=== PATIENT | male | born 1955 | race Caucasian/White ===

== ENCOUNTER → 2016-07-17 | Outpatient (CLI) | payer MEDICAID | LOC: RAD 08:38 | PROVIDERS: ATTEND Specialist | DX: C15.5 Malignant neoplasm of lower third of esophagus (principal) | CPT/HCPCS: 70490; 71250 ==

== ENCOUNTER → 2017-07-14 | Outpatient (CLI) | payer MEDICAID, MEDICARE ==
--- NOTE | 2017-07-14 10:18 | RADIOLOGY REPORT (SQ) ---
EXAM DESCRIPTION: CT CHEST WITHOUT COMPLETED DATE/TIME: 07/14/2017 8:55 am REASON FOR STUDY: OTHER DISORDERS OF LUNG (J98.4), PULM NODULE (R91.1) J98.4 OTHER DISORDERS OF ADRIANNA G R91.1 SOLITARY PULMONARY NODULE COMPARISON: 2017, 2016. TECHNIQUE: CT scan performed of the chest without intravenous contrast. Images reviewed with lung, soft tissue and bone windows. Reconstructed coronal and sagittal MPR images reviewed. All images st ored on PACS. All CT scanners at this facility use dose modulation, iterative reconstruction, and/or weight based d osing when appropriate to reduce radiation dose to as low as reasonably achievable (ALARA). [facility]: Dose Right [facility]: CareDose [facility]: Dose Right [facility]: Teradose 4D [facility]: [employer] RADIATION DOSE: CT Rad equipment meets quality standard of care and radiation dose reduction techniq ues were employed. CTDIvol: 10.8 mGy. DLP: 441 mGy-cm. mGy. LIMITATIONS: No technical limitations. FINDINGS: LUNGS AND PLEURA: Small focus of nodular soft tissue in the right upper lobe with regional distortion, scar. This measures up to 1.9 cm maximally, stable compared to 2017. No recurrent cavi tary mass. No developing lung lesions. Previously noted extensive right lower lobe consolidation hoffmann s resolved since last year. HILAR AND MEDIASTINAL STRUCTURES: Apparent previous gastric pull-through, postoperative changes relat ed to the esophagus. Small chronic anterior epicardial nodes. HEART AND VASCULAR STRUCTURES: No aneurysm. No pericardial effusion. UPPER ABDOMEN: No significant findings. Limited exam. THYROID AND OTHER SOFT TISSUES: No masses. No adenopathy. BONES: Osteopenic and kyphotic. No developing fracture or discrete bone lesion. HARDWARE: None in the chest. OTHER: No other significant findings. IMPRESSION: 1. Stable small focus of scar in the right upper lobe without recurring cavitary lesion . Resolved consolidation in the right lower lobe. Stable small mediastinal nodes. TECHNICAL DOCUMENTATION: JOB ID: [id number] Quality ID # [id number]: Final reports with documentation of one or more dose reduction techniques (e.g., Au tomated exposure control, adjustment of the mA and/or kV according to patient size, use of iterative reconstruction technique) 2010 [employer]- All Rights Reserved Reading location - IP/workstation name: [email or web address]
== END ==
LOC: RAD 08:40
PROVIDERS: ATTEND Internal Medicine Pulmonary Disease
DX: J98.4 Other disorders of lung (principal); R91.1 Solitary pulmonary nodule
CPT/HCPCS: 71250

== ENCOUNTER 2017-12-19 10:28 | Inpatient (IN) | payer MEDICARE, MEDICAID ==
[2017-12-19] MEDS ORDERED: IPRATROPIUM/ALBUTEROL 0.5-2.5 MG/3 ML AMPUL NEB ONE (11:03)
--- NOTE | 2017-12-19 11:05 | ER Document Report ---
ED Medical Screen (RME) - General Chief Complaint: Productive Cough Stated Complaint: COUGH Time Seen by Provider: 12/19/17 10:38 Mode of Arrival: Ambulatory Information source: Patient, Relative, [facility] Records Notes: 61-year-old male with COPD, hypertension, hyperlipidemia, history of esophageal cancer in remission presents with complaint of cough, chest pain, shortness of breath and weakness that have been ongoing for 3 weeks. Patient describes the cough as productive, constant. Patient's chest pain is described as a burning intermittent pain that is worse with laying flat. Patient continues to use tobacco. 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 No recent hospital admissions. I have greeted and performed a rapid initial assessment of this patient. A comprehensive ED assessment and evaluation of the patient, analysis of test results and completion of medical decision making process we will be contacted by additional ED providers. PHYSICAL EXAMINATION: GENERAL: Ill-appearing, well-nourished and in no acute distress. HEAD: Atraumatic, normocephalic. EYES: Pupils equal round extraocular movements intact, conjunctiva are normal. ENT: Nares patent NECK: Normal range of motion LUNGS: No respiratory distress. Musculoskeletal: Normal range of motion NEUROLOGICAL: Normal speech, normal gait. PSYCH: Normal mood, normal affect. SKIN: Warm, Dry, normal turgor, no rashes or lesions noted. TRAVEL OUTSIDE OF THE [place] IN LAST 30 DAYS: No - HPI Onset: Other Onset/Duration: Persistent, Worse Quality of pain: Burning Severity: Mild Associated Symptoms: Body/muscle aches, Chest pain, Cough (productive), Nausea, Shortness of breath, Weakness Exacerbated by: Movement, Coughing, Deep breathing Relieved by: Denies Similar symptoms previously: Yes Recently seen / treated by doctor: Yes - Related Data Smoking: Cigarettes Frequency of alcohol use: None Drug Abuse: None Allergies/Adverse Reactions: Penicillins Allergy (Verified 12/19/17 11:04) Sulfa (Sulfonamide Antibiotics) Allergy (Verified 12/19/17 11:04) Past Medical History - Social History Chew tobacco use (# tins/day): No Frequency of alcohol use: None Drug Abuse: None - Past Medical History Cardiac Medical History: Reports: Hx Hypertension Pulmonary Medical History: Reports: Hx COPD, Hx Pneumonia, Hx Intubation Renal/ Medical History: Denies: Hx Peritoneal Dialysis Psychiatric Medical History: Reports: Hx Depression Past Surgical History: Reports: Hx Abdominal Surgery - hernia, spleen, Hx Appendectomy, Hx Cholecystectomy, Hx Orthopedic Surgery - R knee replaced. L knee repair. Physical Exam - Vital signs Vitals: Temp Pulse Resp BP Pulse Ox 97.9 F 109 H 22 H 116/79 99 12/19/17 10:36 12/19/17 10:36 12/19/17 10:36 12/19/17 10:36 12/19/17 10:36 Course - Vital Signs Vital signs: Temp Pulse Resp BP Pulse Ox 97.9 F 109 H 22 H 116/79 99 12/19/17 10:36 12/19/17 10:36 12/19/17 10:36 12/19/17 10:36 12/19/17 10:36 Doctor's Discharge - Discharge Referrals: MARGUERITE CHAVEZ MD [Primary Care Provider] - Follow up as needed
[2017-12-19] MEDS ORDERED: NORMAL SALINE 500 ML IV ONE (11:06)
--- NOTE | 2017-12-19 11:43 | RADIOLOGY REPORT (SQ) ---
EXAM DESCRIPTION: CHEST 2 VIEWS COMPLETED DATE/TIME: 12/19/2017 11:17 am REASON FOR STUDY: cough COMPARISON: None. NUMBER OF VIEWS: Two view TECHNIQUE: Frontal and lateral radiographic images of the chest acquired. LIMITATIONS: None. FINDINGS: LUNGS AND PLEURA: Enlarging cavitary lesion right upper lobe measuring roughly 10 cm in ma ximum diameter. Subsegmental airspace disease in the right middle lobe. MEDIASTINUM AND HILAR STRUCTURES: Stable heart size and mediastinal structures. HEART AND VASCULAR STRUCTURES: Stable appearance. BONES: No acute findings. HARDWARE: None in the chest. OTHER: No other significant finding. IMPRESSION: Enlarging cavitary lesion right upper lobe. Right middle lobe pneumonia. TECHNICAL DOCUMENTATION: JOB ID: [id number] [employer]- All Rights Reserved Reading location - IP/workstation name: [email or web address]
[2017-12-19 11:51] LABS: HEMATOCRIT 28.3 % (37.9-51.0); HEMOGLOBIN 9.4 g/dL (13.5-17.0); MEAN CORPUSCULAR HEMOGLOBIN 29.1 pg (27.0-33.4); MEAN CORPUSCULAR HGB CONC 33.2 g/dL (32.0-36.0); MEAN CORPUSCULAR VOLUME 88 fl (80-97); PLATELET COUNT 716 10^3/uL (150-450); RED BLOOD COUNT 3.23 10^6/uL (4.35-5.55); RED CELL DISTRIBUTION WIDTH 14.2 % (11.5-14.0)
[2017-12-19] MEDS ORDERED: CEFTRIAXONE 1 GM/D5W RTU 1 GM/50 ML RTUPB IV ONE (12:05)
[2017-12-19 12:06] LABS: ALANINE AMINOTRANSFERASE 21 U/L (21-72); ALBUMIN 2.8 g/dL (3.5-5.0); ALKALINE PHOSPHATASE 217 U/L (38-126); ANION GAP 13 (5-19); ASPARTATE AMINO TRANSFERASE 16 U/L (17-59); BILIRUBIN,DIRECT 0.4 mg/dL (0.0-0.4); BILIRUBIN,TOTAL 0.6 mg/dL (0.2-1.3); BLOOD UREA NITROGEN 18 mg/dL (7-20); CALCIUM 8.5 mg/dL (8.4-10.2); CARBON DIOXIDE 25 mmol/L (22-30); CHLORIDE 102 mmol/L (98-107); CREATINE KINASE 20 U/L (55-170); GLUCOSE 83 mg/dL (75-110); LIPASE 16.5 U/L (23-300); POTASSIUM 3.6 mmol/L (3.6-5.0); TOTAL PROTEIN 6.5 g/dL (6.3-8.2)
[2017-12-19 12:09] LABS: ABSOLUTE LYMPHOCYTES# (MANUAL) 2.6 10^3/uL (0.5-4.7); ABSOLUTE MONOCYTES # (MANUAL) 0.3 10^3/uL (0.1-1.4); BASOPHILS % (MANUAL) 0 % (0-2); EOSINOPHILS % (MANUAL) 0 % (0-6); LYMPHOCYTES % (MANUAL) 8 % (13-45); MONOCYTES % (MANUAL) 1 % (3-13); SEGMENTED NEUTROPHILS % (MAN) 91 % (42-78); TOTAL CELLS COUNTED 100
[2017-12-19 12:10] LABS: PLATELET COMMENT INCREASED; PLATELET GIANT PRESENT; PLATELET LARGE PRESENT; RBC MORPHOLOGY COMMENT NORMO-CYTIC/CHROMIC; TOXIC GRANULATION SLIGHT
[2017-12-19 12:12] LABS: WHITE BLOOD COUNT 31.9 10^3/uL (4.0-10.5)
[2017-12-19] MEDS ORDERED: CEFTRIAXONE INJ 1000 MG VIAL IV ONE (12:14)
[2017-12-19 12:18] LABS: CREATINE KINASE MB 0.46 ng/mL (<4.55)
--- NOTE | 2017-12-19 12:18 | ER Document Report ---
ED General - General Chief Complaint: Productive Cough Stated Complaint: COUGH Time Seen by Provider: 12/19/17 10:38 Mode of Arrival: Ambulatory Notes: Patient says that he is having a breathing problem associated with coughing and wheezing over the past 3 weeks. He has had 2 courses of azithromycin and steroids and just finished a second course and has not shown any improvement. Is coughing up yellow and opaque phlegm. Says he feels weak and tired and has no energy and says he is not eating hardly any food. Denies any nausea or vomiting or diarrhea. Has only had bowel movements every 4 days or so. Also has lost more than 10 pounds in the past few weeks. Denies any urinary tract symptoms. Patient has had his spleen removed. Patient is a cigarette smoker still. Patient has previously been treated about 2 years ago for a cavitary pneumonia in the right upper lobe of his chest. It resolved over about a 6 month period of treatment with antibiotics. He had a CT scan of his chest in July of this year which showed essentially complete resolution of that right upper lobe pneumonia and cavitary lesion with a residual 1.9 cm stable appearing nodule. History of esophageal cancer resulting in surgery to pull his stomach up into the chest. At the same time, he was experiencing bleeding and doctors were not certain why so he had his spleen removed. He is also had his gallbladder removed. Patient just started Wednesday seeing pain management here in [place] for pain in the back of his head and neck region felt to be arthritic in nature and he is to get injections in that area. TRAVEL OUTSIDE OF THE [place] IN LAST 30 DAYS: No - Related Data Allergies/Adverse Reactions: Penicillins Allergy (Verified 12/19/17 11:04) Sulfa (Sulfonamide Antibiotics) Allergy (Verified 12/19/17 11:04) Past Medical History - General Information source: Patient, Relative, [facility] Records - Social History Smoking Status: Current Every Day Smoker Chew tobacco use (# tins/day): No Frequency of alcohol use: None Drug Abuse: None Family History: Reviewed & Not Pertinent, CAD, CVA, Hypertension, Malignancy, Other Patient has suicidal ideation: No Patient has homicidal ideation: No - Past Medical History Cardiac Medical History: Reports: Hx Hypertension - Was on medication for his blood pressure but has not taken for a month Denies: Hx Coronary Artery Disease Pulmonary Medical History: Reports: Hx COPD, Hx Pneumonia Endocrine Medical History: Denies: Hx Diabetes Mellitus Type 1, Hx Diabetes Mellitus Type 2 Renal/ Medical History: Reports: Other - says patient's creatinine goes up and down Malignancy Medical History: Reports Other - Esophageal cancer GI Medical History: Reports: Hx Hiatal Hernia Psychiatric Medical History: Reports: Hx Depression Past Surgical History: Reports: Hx Abdominal Surgery - hernia, spleen, Hx Cholecystectomy, Hx Orthopedic Surgery - R knee replaced. L knee repair. Review of Systems - Review of Systems Notes: REVIEW OF SYSTEMS: CONSTITUTIONAL : Denies fever. Feeling weak and tired and no appetite. Weight loss 10-11 pounds. EENT: Denies eye, ear, nose or mouth or throat pain or other symptoms. CARDIOVASCULAR: Denies chest pain. RESPIRATORY: See HPI. GASTROINTESTINAL: Denies abdominal pain or nausea, vomiting, or diarrhea. Decreased bowel movements to about once every 4 days. See HPI. GENITOURINARY: Denies difficulty or painful urinating, urinary frequency, blood in urine. MUSCULOSKELETAL: Denies back or neck pain. Denies joint pain or swelling. SKIN: Denies rash or skin lesions. NEUROLOGICAL: Denies LOC or altered mental status. Has posterior headache and neck pain.. Denies sensory loss or motor deficits. ALL OTHER SYSTEMS REVIEWED AND NEGATIVE. Physical Exam - Vital signs Vitals: Temp Pulse Resp BP Pulse Ox 97.9 F 109 H 22 H 116/79 99 12/19/17 10:36 12/19/17 10:36 12/19/17 10:36 12/19/17 10:36 12/19/17 10:36 Interpretation: Normal - Notes Notes: PHYSICAL EXAMINATION: GENERAL: Well-appearing, in no acute distress. Thin. Vital signs are all normal. HEAD: Atraumatic, normocephalic. EYES: Pupils equal round and reactive to light, extraocular movements intact. ENT: oropharynx clear without exudates. Moist mucous membranes. NECK: Normal range of motion, supple. Muscle soreness to touch in the posterior portion of the scalp and neck. LUNGS: Breath sounds clear and equal bilaterally. HEART: Regular rate and rhythm without murmurs. ABDOMEN: Soft, nontender. No guarding or rebound. No masses. BACK: No tenderness throughout entire back. EXTREMITIES: Normal range of motion without pain. No swelling. No edema. Negative Homans bilaterally. NEUROLOGICAL: Normal speech, normal gait. Normal sensory, motor, and reflex exams. Awake, alert, and oriented x3. Cranial nerves normal. PSYCH: Normal mood, normal affect. SKIN: Warm, dry, no rashes. Course - Re-evaluation Re-evalutation: 12/19/17 15:09 Spoke with hospitalist who will admit the patient for IV and antibiotic therapy. - Vital Signs Vital signs: Temp Pulse Resp BP Pulse Ox 97.9 F 109 H 22 H 116/79 99 12/19/17 10:36 12/19/17 10:36 12/19/17 10:36 12/19/17 10:36 12/19/17 10:36 - Laboratory Result Diagrams: 12/19/17 11:20 12/19/17 11:20 Laboratory results interpreted by me: 12/19/17 12/19/17 11:20 11:20 WBC 31.9 H* RBC 3.23 L Hgb 9.4 L Hct 28.3 L RDW 14.2 H Plt Count 716 H Seg Neuts % (Manual) 91 H Lymphocytes % (Manual) 8 L Monocytes % (Manual) 1 L Abs Neuts (Manual) 29.0 H Creatinine 1.60 H Est GFR ( Amer) 53 L Est GFR (Non-Af Amer) 44 L AST 16 L Alkaline Phosphatase 217 H Creatine Kinase 20 L Albumin 2.8 L Lipase 16.5 L - Diagnostic Test Radiology reviewed: Image reviewed, Reports reviewed - CT scan shows a large cavitary lesion in the right upper lobe of the lung. This lesion has an air- fluid level in the midportion. Below that lesion, there is patchy infiltrates in the right middle lobe and right lower lobe areas. Radiology results interpreted by me: 12/19/17 12:27 Chest x-ray shows a cavitary lesion in the right upper lobe of the lungs. Right middle lobe pneumonia. - EKG Interpretation by Mt EKG shows normal: Sinus rhythm Rhythm: APC's - Frequent Discharge - Discharge Clinical Impression: Right middle lobe pneumonia, Cavitary lesion of lung Condition: Stable Disposition: ADMITTED INPATIENT Admitting Provider: Hospitalist Unit Admitted: Telemetry
[2017-12-19 12:22] LABS: TROPONIN I < 0.012 ng/mL
[2017-12-19] MEDS ORDERED: NORMAL SALINE 1000 ML 1,000 ML IV ONE (12:33)
[2017-12-19 14:34] LABS: APPEARANCE,URINE CLEAR; BILIRUBIN,URINE NEGATIVE (NEGATIVE); COLOR,URINE YELLOW; GLUCOSE, URINE NEGATIVE (NEGATIVE); KETONES,URINE NEGATIVE (NEGATIVE); LEUKOCYTE ESTERASE,URINE NEGATIVE (NEGATIVE); NITRITE,URINE NEGATIVE (NEGATIVE); PROTEIN,URINE NEGATIVE (NEGATIVE); URINE SPECIFIC GRAVITY 1.011; UROBILINOGEN,URINE NEGATIVE mg/dL (<2.0)
--- NOTE | 2017-12-19 14:50 | RADIOLOGY REPORT (SQ) ---
EXAM DESCRIPTION: CT CHEST WITH COMPLETED DATE/TIME: 12/19/2017 2:24 pm REASON FOR STUDY: Recurrent RUL cavitary lesion and RML pneumonia COMPARISON: 07/14/2017 TECHNIQUE: CT scan of the chest performed using helical scanning technique with dynamic intravenous contrast injection. Images reviewed with lung, soft tissue and bone windows. Reconstructed coronal and sagittal MPR images reviewed. All images stored on PACS. All CT scanners at this facility use dose modulation, iterative reconstruction, and/or weight based d osing when appropriate to reduce radiation dose to as low as reasonably achievable (ALARA). [facility]: Dose Right [facility]: CareDose [facility]: Dose Right [facility]: Teradose 4D [facility]: [employer] CONTRAST TYPE AND DOSE: contrast/concentration: Isovue 300.00 mg/ml; Total Contrast Delivered: 80.0 ml; Total Saline Delivered: 53.0 ml RENAL FUNCTION: BUN 18 creatinine 1.6 RADIATION DOSE: CT Rad equipment meets quality standard of care and radiation dose reduction techniq ues were employed. CTDIvol: 7.0 mGy. DLP: 305 mGy-cm. . LIMITATIONS: None. FINDINGS: LUNGS AND PLEURA: Right upper lobe cavitary mass measuring roughly 10.1 x 9.3 x 10.9 cm in AP by transverse by craniocaudal diameter. Mass crosses the major fissure into the superior segment of the right lower lobe. Diffuse patchy airspace disease in the middle lobe and more inferior righ t lower lobe. Left lobe is clear other than some scarring in the lingula. No effusions. HILAR AND MEDIASTINAL STRUCTURES: Small mediastinal nodes measuring up to 1.5 cm and short axis pretr acheal and subcarinal. Multiple clips in the posterior mediastinum and along the medial margin of th e cavitary mass. HEART AND VASCULAR STRUCTURES: No aneurysm or dissection. No central pulmonary emboli. No pericardi al effusion. HARDWARE: None in the chest. UPPER ABDOMEN: Gastric bypass. Cholecystectomy. Limited exam. THYROID AND OTHER SOFT TISSUES: No masses. No adenopathy. BONES: No acute findings. OTHER: No other significant finding. IMPRESSION: Large cavitary mass right upper lobe crossing the major fissure into the superior segmen t of the right lower lobe. Multifocal pneumonia in the right lung. TECHNICAL DOCUMENTATION: JOB ID: [id number] Quality ID # [id number]: Final reports with documentation of one or more dose reduction techniques (e.g., Au tomated exposure control, adjustment of the mA and/or kV according to patient size, use of iterative reconstruction technique) 2010 [email or web address]- All Rights Reserved Reading location - IP/workstation name: [email or web address]
--- NOTE | 2017-12-19 17:27 | EKG REPORT ---
SEVERITY:- OTHERWISE NORMAL ECG - SINUS TACHYCARDIA WITH APC'S. : Confirmed by: Yi Nash MD 19-Dec-2017 17:27:09
--- NOTE | 2017-12-19 17:28 | EKG REPORT ---
SEVERITY:- OTHERWISE NORMAL ECG - SINUS TACHYCARDIA MULTIPLE ATRIAL PREMATURE COMPLEXES : Confirmed by: Yi Nash MD 19-Dec-2017 17:27:27
[2017-12-19] MEDS ORDERED: GUAIFENESIN SYRP 200 MG/10 ML UDC PO PRN (17:40)
[2017-12-19] MEDS ORDERED: TUBERCULIN,PURIF.PROT.DERIV. 5 TU/0.1 ML TEST 1 ML VIAL ID ONE ×2 (17:40→19:56)
[2017-12-19] MEDS ORDERED: ACETAMINOPHEN 325 MG TABLET PO PRN (17:40)
[2017-12-19] MEDS ORDERED: AZITHROMYCIN 500 MG in DEXTROSE 5%-WATER 250 ML IV SCH (18:00)
[2017-12-19] MEDS ORDERED: VANCOMYCIN HCL 0 MG in DEXTROSE 5%-WATER 250 ML IV NR (18:00)
[2017-12-19] MEDS ORDERED: VANCOMYCIN HCL INJ 1000 MG VIAL IV PRN (18:07)
[2017-12-19] MEDS ORDERED: IPRATROPIUM BROMIDE HFA 17 MCG/PUFF 200 PUFF/12.9 GM MDI IH ONE (18:15)
[2017-12-19] MEDS: CLINDAMYCIN 900 MG/D5W RTU 900 MG/50 ML RTUPB IV SCH (19:09)
[2017-12-19 19:12] LABS: ARTERIAL BLOOD BASE EXCESS 0.8 mmol/L; ARTERIAL BLOOD H2CO3 0.97 mmol/L (1.05-1.35); ARTERIAL BLOOD PCO2 32.3 mmHg (35-45); ARTERIAL BLOOD PH 7.49 (7.35-7.45); ARTERIAL BLOOD PO2 73.9 mmHg (80-100); ARTERIAL BLOOD TOTAL CO2 24.9 mmol/L (23-27)
[2017-12-19 19:14] LABS: ARTERIAL BLOOD FIO2 ROOM AIR
[2017-12-19] MEDS ORDERED: VANCOMYCIN HCL 1,500 MG in DEXTROSE 5%-WATER 250 ML IV ONE (20:00)
--- NOTE | 2017-12-19 20:11 | PDOC H&P ---
History of Present Illness Admission Date/PCP: 12/19/17 13:15 MARGUERITE CHAVEZ MD History of Present Illness: SURJIT CHEN is a 61 year old male Patient says that he is having a breathing problem associated with coughing and wheezing over the past 3 weeks. He has had 2 courses of azithromycin and steroids and just finished a second course and has not shown any improvement. Is coughing up yellow and opaque phlegm. Says he feels weak and tired and has no energy and says he is not eating hardly any food. Denies any nausea or vomiting or diarrhea. Has only had bowel movements every 4 days or so. Also has lost more than 10 pounds in the past few weeks. Denies any urinary tract symptoms. Patient has had his spleen removed. Patient is a cigarette smoker still. Patient has previously been treated about 2 years ago for a cavitary pneumonia in the right upper lobe of his chest. It resolved over about a 6 month period of treatment with antibiotics. He had a CT scan of his chest in July of this year which showed essentially complete resolution of that right upper lobe pneumonia and cavitary lesion with a residual 1.9 cm stable appearing nodule. History of esophageal cancer resulting in surgery to pull his stomach up into the chest. At the same time, he was experiencing bleeding and doctors were not certain why so he had his spleen removed. He is also had his gallbladder removed. Patient just started Wednesday seeing pain management here in [place] for pain in the back of his head and neck region felt to be arthritic in nature and he is to get injections in that area. Past Medical History Cardiac Medical History: Reports: Hypertension - Was on medication for his blood pressure but has not taken for a month Denies: Coronary Artery Disease Pulmonary Medical History: Reports: Chronic Obstructive Pulmonary Disease (COPD) , Intubation, Pneumonia Endocrine Medical History: Denies: Diabetes Mellitus Type 1, Diabetes Mellitus Type 2 Renal/ Medical History: Reports: Other - says patient's creatinine goes up and down Malignancy Medical History: Reports: Other - Esophageal cancer GI Medical History: Reports: Hiatal Hernia Psychiatric Medical History: Reports: Depression Hematology: Reports: Anemia Past Surgical History Past Surgical History: Reports: Appendectomy, Cholecystectomy, Orthopedic Surgery - R knee replaced. L knee repair. Social History Smoking Status: Current Every Day Smoker Frequency of Alcohol Use: None Hx Recreational Drug Use: No Drugs: None Hx Prescription Drug Abuse: No Family History Family History: Reviewed & Not Pertinent, CAD, CVA, Hypertension, Malignancy, Other Parental Family History Reviewed: Yes Children Family History Reviewed: NA Sibling(s) Family History Reviewed.: NA Medication/Allergy Home Medications: Mirtazapine [Remeron] 45 mg PO HSP 01/23/16 Venlafaxine HCl [Effexor Xr] 150 mg PO QAM 01/23/16 Bupropion HCl [Bupropion Xl] 300 mg PO DAILY 12/19/17 Minoxidil [Loniten 10 mg Tablet] 10 mg PO DAILY 12/19/17 Pantoprazole Sodium [Protonix] 40 mg PO QAM 12/19/17 Tramadol HCl [Ultram 50 mg Tablet] 50 mg PO DAILYP PRN 12/19/17 Zolpidem Tartrate [Ambien] 10 mg PO HSP PRN 12/19/17 Allergies/Adverse Reactions: Penicillins Allergy (Verified 12/19/17 17:40) Sulfa (Sulfonamide Antibiotics) Allergy (Verified 12/19/17 17:40) Review of Systems Constitutional: PRESENT: fatigue, headache(s), weight loss. ABSENT: fever(s) Cardiovascular: ABSENT: chest pain, palpitations Respiratory: PRESENT: cough, dyspnea, sputum Gastrointestinal: PRESENT: nausea. ABSENT: abdominal pain Neurological: PRESENT: dizziness Physical Exam Vital Signs: Temp Pulse Resp BP Pulse Ox 98.1 F 60 16 125/59 L 96 12/19/17 15:23 12/19/17 15:23 12/19/17 15:23 12/19/17 15:23 12/19/17 15:23 Intake & Output 12/18/17 12/19/17 12/20/17 06:59 06:59 06:59 Intake Total 1000 Balance 1000 General appearance: PRESENT: no acute distress, cooperative, thin Head exam: PRESENT: atraumatic, normocephalic Eye exam: PRESENT: EOMI, PERRLA Ear exam: PRESENT: normal external ear exam Neck exam: PRESENT: full ROM. ABSENT: carotid bruit, thyromegaly Respiratory exam: PRESENT: rhonchi, wheezes Cardiovascular exam: PRESENT: RRR, other - EKG shows sinus rhythm with frequent PACs. GI/Abdominal exam: PRESENT: soft. ABSENT: distended, tenderness Rectal exam: PRESENT: deferred Neurological exam: PRESENT: alert, awake, oriented to person, oriented to place , oriented to time, oriented to situation, CN II-XII grossly intact Results Laboratory Results: 12/19/17 12/19/17 14:20 18:50 Carbonic Acid 0.97 L HCO3/H2CO3 Ratio 24:1 ABG pH 7.49 H ABG pCO2 32.3 L ABG pO2 73.9 L ABG HCO3 24.0 ABG O2 Saturation 96.0 ABG Base Excess 0.8 FiO2 ROOM AIR Urine Color YELLOW Urine Appearance CLEAR Urine pH 5.0 Ur Specific [place] 1.011 Urine Protein NEGATIVE Urine Glucose (UA) NEGATIVE Urine Ketones NEGATIVE Urine Blood NEGATIVE Urine Nitrite NEGATIVE Ur Leukocyte Esterase NEGATIVE Urine WBC (Auto) 1 Urine RBC (Auto) 1 Impressions: Chest X-Ray 12/19/17 10:46 IMPRESSION: Enlarging cavitary lesion right upper lobe. Right middle lobe pneumonia. Chest CT 12/19/17 12:04 IMPRESSION: Large cavitary mass right upper lobe crossing the major fissure into the superior segment of the right lower lobe. Multifocal pneumonia in the right lung. Assessment & Plan - Diagnosis (1) Cavitary lesion of lung Is this a current diagnosis for this admission?: Yes Plan: Suspect aspiration pneumonia to be the reasoning for this right upper lobe cavitary lesion. Patient to be treated empirically with broad-spectrum antibiotics including vancomycin for MRSA coverage and clindamycin for anaerobic. [employer] Dr. Chavez has been consulted and he will has agreed to see the patient and evaluate the patient with possible bronchoscopy. (2) Anemia Qualifiers: Anemia type: iron deficiency Iron deficiency anemia type: other iron deficiency Qualified Code(s): D50.8 - Other iron deficiency anemias Is this a current diagnosis for this admission?: Yes Plan: Patient has anemia hemoglobin of 9.4 suspect acute on chronic anemia of chronic disease patient has multiple chronic issues. Including this history of esophageal cancer. Plan we will guaiac - Time Critical Time spent with patient: 25-34 minutes - Inpatient Certification Based on my medical assessment, after consideration of the patient's comorbidities, presenting symptoms, or acuity I expect that the services needed warrant INPATIENT care.: Yes I certify that my determination is in accordance with my understanding of Medicare's requirements for reasonable and necessary INPATIENT services [42 CFR 412.3e].: Yes Medical Necessity: Failure to Improve With Outpatient Therapy, Need for Nebulizer Therapy and Monitoring of Response
[2017-12-19] MEDS ORDERED: AZITHROMYCIN INJ 500 MG VIAL IV ONE (20:34)
[2017-12-20] MEDS: IPRATROPIUM BROMIDE HFA 17 MCG/PUFF 200 PUFF/12.9 GM MDI IH SCH ×2 (00:19→10:58)
[2017-12-20] MEDS: CLINDAMYCIN 900 MG/D5W RTU 900 MG/50 ML RTUPB IV SCH (03:33)
[2017-12-20] MEDS ORDERED: CLINDAMYCIN 900 MG/D5W RTU 900 MG/50 ML RTUPB IV ONE (03:45)
[2017-12-20] MEDS ORDERED: LANSOPRAZOLE 30 MG TAB.RAP.DR PO SCH (06:00)
[2017-12-20 06:31] LABS: HEMATOCRIT 25.3 % (37.9-51.0); HEMOGLOBIN 8.4 g/dL (13.5-17.0); MEAN CORPUSCULAR HEMOGLOBIN 28.7 pg (27.0-33.4); MEAN CORPUSCULAR HGB CONC 33.2 g/dL (32.0-36.0); MEAN CORPUSCULAR VOLUME 86 fl (80-97); PLATELET COUNT 625 10^3/uL (150-450); RED BLOOD COUNT 2.93 10^6/uL (4.35-5.55); RED CELL DISTRIBUTION WIDTH 14.4 % (11.5-14.0)
[2017-12-20 06:46] LABS: ALANINE AMINOTRANSFERASE 19 U/L (21-72); ALBUMIN 2.3 g/dL (3.5-5.0); ALKALINE PHOSPHATASE 158 U/L (38-126); ANION GAP 12 (5-19); ASPARTATE AMINO TRANSFERASE 11 U/L (17-59); BILIRUBIN,DIRECT 0.3 mg/dL (0.0-0.4); BILIRUBIN,TOTAL 0.3 mg/dL (0.2-1.3); BLOOD UREA NITROGEN 17 mg/dL (7-20); CALCIUM 7.9 mg/dL (8.4-10.2); CARBON DIOXIDE 22 mmol/L (22-30); CHLORIDE 104 mmol/L (98-107); GLUCOSE 88 mg/dL (75-110); POTASSIUM 3.2 mmol/L (3.6-5.0); SODIUM 137.8 mmol/L (137-145); TOTAL PROTEIN 5.5 g/dL (6.3-8.2)
[2017-12-20 07:45] LABS: WHITE BLOOD COUNT 30.9 10^3/uL (4.0-10.5)
[2017-12-20 07:49] LABS: ABSOLUTE LYMPHOCYTES# (MANUAL) 1.9 10^3/uL (0.5-4.7); ABSOLUTE MONOCYTES # (MANUAL) 1.9 10^3/uL (0.1-1.4); ABSOLUTE NEUTROPHILS# (MANUAL) 27.2 10^3/uL (1.7-8.2); BASOPHILS % (MANUAL) 0 % (0-2); EOSINOPHILS % (MANUAL) 0 % (0-6); LYMPHOCYTES % (MANUAL) 6 % (13-45); MONOCYTES % (MANUAL) 6 % (3-13); PLATELET COMMENT INCREASED; ROULEAUX SLIGHT; SEGMENTED NEUTROPHILS % (MAN) 88 % (42-78); TOTAL CELLS COUNTED 100; TOXIC VACUOLATION PRESENT
[2017-12-20 07:50] LABS: HYPOCHROMASIA 1+; POLYCHROMASIA SLIGHT; TARGET CELLS 2+
[2017-12-20] MEDS ORDERED: VANCOMYCIN HCL 750 MG in DEXTROSE 5%-WATER 250 ML IV SCH (10:00)
[2017-12-20] MEDS ORDERED: ENOXAPARIN SODIUM INJ 40 MG/0.4 ML DISP.SYRIN SUBCUT SCH (10:00)
[2017-12-20] MEDS ORDERED: CLINDAMYCIN 900 MG/D5W RTU 900 MG/50 ML RTUPB IV SCH (10:00)
[2017-12-20] MEDS ORDERED: TIOTROPIUM BROMIDE DPI 5 CAP/KIT (18 MCG/CAP) IH SCH (10:00)
[2017-12-20 12:00] LABS: APPEARANCE,URINE SLIGHTLY-CLOUDY; BILIRUBIN,URINE NEGATIVE (NEGATIVE); COLOR,URINE YELLOW; GLUCOSE, URINE NEGATIVE (NEGATIVE); KETONES,URINE NEGATIVE (NEGATIVE); LEUKOCYTE ESTERASE,URINE NEGATIVE (NEGATIVE); NITRITE,URINE NEGATIVE (NEGATIVE); PROTEIN,URINE NEGATIVE (NEGATIVE); URINE SPECIFIC GRAVITY 1.021; UROBILINOGEN,URINE NEGATIVE mg/dL (<2.0)
[2017-12-20 12:43] LABS: MEAN CORPUSCULAR HEMOGLOBIN 29.4 pg (27.0-33.4); MEAN CORPUSCULAR HGB CONC 34.1 g/dL (32.0-36.0); MEAN CORPUSCULAR VOLUME 86 fl (80-97); PLATELET COUNT 565 10^3/uL (150-450); RED BLOOD COUNT 2.66 10^6/uL (4.35-5.55); RED CELL DISTRIBUTION WIDTH 14.3 % (11.5-14.0)
[2017-12-20 12:51] LABS: HEMOGLOBIN 7.8 g/dL (13.5-17.0)
[2017-12-20 12:52] LABS: WHITE BLOOD COUNT 31.1 10^3/uL (4.0-10.5)
[2017-12-20 13:01] LABS: ALANINE AMINOTRANSFERASE 24 U/L (21-72); ALBUMIN 2.1 g/dL (3.5-5.0); ALKALINE PHOSPHATASE 150 U/L (38-126); ANION GAP 13 (5-19); ASPARTATE AMINO TRANSFERASE 13 U/L (17-59); BILIRUBIN,DIRECT 0.2 mg/dL (0.0-0.4); BILIRUBIN,TOTAL 0.2 mg/dL (0.2-1.3); BLOOD UREA NITROGEN 16 mg/dL (7-20); CARBON DIOXIDE 21 mmol/L (22-30); CHLORIDE 102 mmol/L (98-107); GLUCOSE 113 mg/dL (75-110); PHOSPHORUS 3.8 mg/dL (2.5-4.5); POTASSIUM 3.3 mmol/L (3.6-5.0); SODIUM 135.8 mmol/L (137-145); TOTAL PROTEIN 5.2 g/dL (6.3-8.2)
--- NOTE | 2017-12-20 13:22 | PDOC DISCHARGE SUMMARY ---
General - Admit/Disc Date/PCP Admission Date/Primary Care Provider: 12/19/17 13:15 MARGUERITE CHAVEZ MD Discharge Date: 12/20/17 - Discharge Diagnosis (1) Cavitary lesion of lung Is this a current diagnosis for this admission?: Yes Summary: Patient has had previous bronchoscopy 2015 for his cavitating mass. Chest CT 01/23/16 00:00 IMPRESSION: Cavitary lesion with air-fluid level and surrounding airspace disease, worrisome for tuberculosis or atypical/fungal infection. Neoplasm is also possible. Post esophagectomy and gastric pull-through, post cholecystectomy Chest CT 07/17/2016; Findings there are right upper lobe radiation therapy markers. The cavitary lesion in the right upper lobe had resolved. There is a small stellate scar in the right upper lobe axial image 37 measuring 1.9 multiplied by 0.9 cm in size. Remainder of the lungs are well-inflated and clear. Continue antibiotic therapy with azithromycin, clindamycin, vancomycin. he is continued on nebulizer therapy. (2) Anemia Is this a current diagnosis for this admission?: Yes Summary: She has had a history of iron deficiency anemia and has received iron transfusions in the past. We will give patient 1 unit of PRBC today. - Additional Information Resuscitation Status: Full Code - 01/28/16 18:25 Sputum Gram Stain - Final 01/28/16 18:25 Sputum Sputum Culture - Final C.albicans/C.dubliniensis Normal Catherine Absent 13:48 Bronchial Washings Gram Stain - Final 01/27/16 13:48 Bronchial Washings Bronchial Washings Culture - Final NO GROWTH 2 DAYS. Home Medications: Mirtazapine [Remeron] 45 mg PO QHS 01/23/16 Venlafaxine HCl [Effexor Xr] 150 mg PO QAM 01/23/16 Bupropion HCl [Bupropion Xl] 300 mg PO DAILY 12/19/17 Pantoprazole Sodium [Protonix] 40 mg PO QAM 12/19/17 Tramadol HCl [Ultram 50 mg Tablet] 50 mg PO DAILYP PRN 12/19/17 Zolpidem Tartrate [Ambien] 10 mg PO QHS 12/19/17 Cyanocobalamin (Vitamin B-12) [Vitamin B12] 2,500 mg PO DAILY 12/20/17 Cyclobenzaprine HCl [Flexeril 10 mg Tablet] 10 mg PO Q12HP PRN 12/20/17 Ergocalciferol (Vitamin D2) [Drisdol 50,000 unit (1.25MG) Capsule] 50,000 unit PO MCLEAN@1000 12/20/17 Ferrous Sulfate [Feosol 325 mg Tablet] 325 mg PO DAILY 12/20/17 Folic Acid [Folvite 1 mg Tablet] 1 mg PO DAILY 12/20/17 Metoclopramide HCl [Reglan 10 mg Tablet] 10 mg PO ACP PRN 12/20/17 History of Present Illness History of Present Illness: SURJIT CHEN is a 61 year old male Patient says that he is having a breathing problem associated with coughing and wheezing over the past 3 weeks. He has had 2 courses of azithromycin and steroids and just finished a second course and has not shown any improvement. Is coughing up yellow and opaque phlegm. Says he feels weak and tired and has no energy and says he is not eating hardly any food. Denies any nausea or vomiting or diarrhea. Has only had bowel movements every 4 days or so. Also has lost more than 10 pounds in the past few weeks. Denies any urinary tract symptoms. Patient has had his spleen removed. Patient is a cigarette smoker still. Patient has previously been treated about 2 years ago for a cavitary pneumonia in the right upper lobe of his chest. It resolved over about a 6 month period of treatment with antibiotics. He had a CT scan of his chest in July of this year which showed essentially complete resolution of that right upper lobe pneumonia and cavitary lesion with a residual 1.9 cm stable appearing nodule. History of esophageal cancer resulting in surgery to pull his stomach up into the chest. At the same time, he was experiencing bleeding and doctors were not certain why so he had his spleen removed. He is also had his gallbladder removed. Patient just started Wednesday seeing pain management here in [place] for pain in the back of his head and neck region felt to be arthritic in nature and he is to get injections in that area. Hospital Course Hospital Course: Patient is a 61-year-old male with history of stage I distal esophageal cancer in 2012 diagnosed in [place] status post esophagectomy and gastric pull-through, status post cholecystectomy. Regina presents to the emergency room with history of anorexia unintentional weight loss and severe weakness. is at bedside states that this is been going on for the past few weeks he has been little more congested and has been producing creasing sputum. From history patient has been evaluated by sales ambassador at [facility] and has had bronchoscopy with biopsy attempted. 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 Patient has a history of penicillin codeine and sulfa allergy. Patient sees Dr. Chavez for his sales ambassador. Gifty has seen the patient today and has recommended that the patient be evaluated at [facility] and. As discussed with Dr. Briceno at [facility] facility and patient has been accepted. Physical Exam Vital Signs: Temp Pulse Resp BP Pulse Ox 97.9 F 58 L 18 135/77 H 99 12/20/17 08:12 12/20/17 08:12 12/20/17 08:12 12/20/17 08:12 12/20/17 08:12 Intake & Output 12/19/17 12/20/17 12/21/17 06:59 06:59 06:59 Intake Total 1600 300 Balance 1600 300 Weight 148 lb 12.992 oz General appearance: PRESENT: no acute distress, cooperative Head exam: PRESENT: atraumatic, normocephalic Eye exam: PRESENT: EOMI Respiratory exam: PRESENT: rhonchi, wheezes Cardiovascular exam: PRESENT: RRR GI/Abdominal exam: PRESENT: normal bowel sounds, soft. ABSENT: tenderness Rectal exam: PRESENT: deferred Musculoskeletal exam: PRESENT: ambulatory Neurological exam: PRESENT: alert, altered, awake, oriented to person, oriented to place, oriented to time, oriented to situation, CN II-XII grossly intact Results Laboratory Results: 12/20/17 12:20 12/19/17 12/19/17 12/19/17 14:20 18:50 20:55 WBC RBC Hgb Hct MCV MCH MCHC RDW Plt Count Seg Neutrophils % Lymphocytes % Monocytes % Eosinophils % Basophils % Absolute Neutrophils Absolute Lymphocytes Absolute Monocytes Absolute Eosinophils Absolute Basophils Carbonic Acid 0.97 L HCO3/H2CO3 Ratio 24:1 ABG pH 7.49 H ABG pCO2 32.3 L ABG pO2 73.9 L ABG HCO3 24.0 ABG O2 Saturation 96.0 ABG Base Excess 0.8 FiO2 ROOM AIR Sodium Potassium Chloride Carbon Dioxide Anion Gap BUN Creatinine Est GFR ( Amer) Est GFR (Non-Af Amer) Glucose Calcium Total Bilirubin AST ALT Alkaline Phosphatase Total Protein Albumin Urine Color YELLOW Urine Appearance CLEAR Urine pH 5.0 Ur Specific [place] 1.011 Urine Protein NEGATIVE Urine Glucose (UA) NEGATIVE Urine Ketones NEGATIVE Urine Blood NEGATIVE Urine Nitrite NEGATIVE Ur Leukocyte Esterase NEGATIVE Urine WBC (Auto) 1 Urine RBC (Auto) 1 Blood Type B POSITIVE Antibody Screen NEGATIVE 12/20/17 12/20/17 12/20/17 05:50 05:50 11:39 WBC 30.9 H* RBC 2.93 L Hgb 8.4 L Hct 25.3 L MCV 86 MCH 28.7 MCHC 33.2 RDW 14.4 H Plt Count 625 H Seg Neutrophils % Not Reportable Lymphocytes % Not Reportable Monocytes % Not Reportable Eosinophils % Not Reportable Basophils % Not Reportable Absolute Neutrophils Not Reportable Absolute Lymphocytes Not Reportable Absolute Monocytes Not Reportable Absolute Eosinophils Not Reportable Absolute Basophils Not Reportable Carbonic Acid HCO3/H2CO3 Ratio ABG pH ABG pCO2 ABG pO2 ABG HCO3 ABG O2 Saturation ABG Base Excess FiO2 Sodium 137.8 Potassium 3.2 L Chloride 104 Carbon Dioxide 22 Anion Gap 12 BUN 17 Creatinine 1.43 H Est GFR ( Amer) > 60 Est GFR (Non-Af Amer) 50 L Glucose 88 Calcium 7.9 L Total Bilirubin 0.3 AST 11 L ALT 19 L Alkaline Phosphatase 158 H Total Protein 5.5 L Albumin 2.3 L Urine Color YELLOW Urine Appearance SLIGHTLY-CLOUDY Urine pH 5.0 Ur Specific [place] 1.021 Urine Protein NEGATIVE Urine Glucose (UA) NEGATIVE Urine Ketones NEGATIVE Urine Blood NEGATIVE Urine Nitrite NEGATIVE Ur Leukocyte Esterase NEGATIVE Urine WBC (Auto) 1 Urine RBC (Auto) 0 Blood Type Antibody Screen 12/20/17 12:20 WBC 31.1 H* RBC 2.66 L Hgb 7.8 L Hct 23.0 L MCV 86 MCH 29.4 MCHC 34.1 RDW 14.3 H Plt Count 565 H Seg Neutrophils % Not Reportable Lymphocytes % Not Reportable Monocytes % Not Reportable Eosinophils % Not Reportable Basophils % Not Reportable Absolute Neutrophils Not Reportable Absolute Lymphocytes Not Reportable Absolute Monocytes Not Reportable Absolute Eosinophils Not Reportable Absolute Basophils Not Reportable Carbonic Acid HCO3/H2CO3 Ratio ABG pH ABG pCO2 ABG pO2 ABG HCO3 ABG O2 Saturation ABG Base Excess FiO2 Sodium Potassium Chloride Carbon Dioxide Anion Gap BUN Creatinine Est GFR ( Amer) Est GFR (Non-Af Amer) Glucose Calcium Total Bilirubin AST ALT Alkaline Phosphatase Total Protein Albumin Urine Color Urine Appearance Urine pH Ur Specific [place] Urine Protein Urine Glucose (UA) Urine Ketones Urine Blood Urine Nitrite Ur Leukocyte Esterase Urine WBC (Auto) Urine RBC (Auto) Blood Type Antibody Screen 12/20/17 05:50 NT-Pro-B Natriuret Pep 3660 H Impressions: Chest X-Ray 12/19/17 10:46 IMPRESSION: Enlarging cavitary lesion right upper lobe. Right middle lobe pneumonia. Chest CT 12/19/17 12:04 IMPRESSION: Large cavitary mass right upper lobe crossing the major fissure into the superior segment of the right lower lobe. Multifocal pneumonia in the right lung. Qualifiers - * PATIENT BEING DISCHARGED WITH ANY OF THE FOLLOWING DIAGNOSIS: No Plan Time Spent: Less than 30 Minutes - TRANSFER TO REPLACED BY [facility] FOR FURTHER EVALAUTION OF LUNG MASS, SUSPECT CANCER.
[2017-12-20 13:42] LABS: ABSOLUTE LYMPHOCYTES# (MANUAL) 1.6 10^3/uL (0.5-4.7); ABSOLUTE MONOCYTES # (MANUAL) 1.2 10^3/uL (0.1-1.4); ABSOLUTE NEUTROPHILS# (MANUAL) 28.3 10^3/uL (1.7-8.2); BASOPHILS % (MANUAL) 0 % (0-2); BURR CELLS 1+; EOSINOPHILS % (MANUAL) 0 % (0-6); HYPOCHROMASIA 2+; LYMPHOCYTES % (MANUAL) 5 % (13-45); MONOCYTES % (MANUAL) 4 % (3-13); PLATELET COMMENT INCREASED; POIKILOCYTOSIS 1+; POLYCHROMASIA SLIGHT; SCHISTOCYTES SLIGHT; SEGMENTED NEUTROPHILS % (MAN) 91 % (42-78); TOTAL CELLS COUNTED 100
[2017-12-20 15:28] LABS: PATH REVIEW PATHOLOGIST REVIEWED
[2017-12-20 15:28] LABS: PATH REVIEW PATHOLOGIST REVIEWED
[2017-12-20 15:37] VITALS: BP 134/73
== END 2017-12-20 17:35 | disposition short-term general hospital (02) | DRG 206 ==
LOC: ER 10:28 → EH 13:15 → 3N 12-20 08:10
PROVIDERS: ADMIT Internal Medicine; ATTEND Internal Medicine
PROC: 30233N1 Transfusion of Nonautologous Red Blood Cells into Peripheral Vein, Percutaneous Approach (ICD-10-PCS; principal; 2017-12-20)
DX: R91.1 Solitary pulmonary nodule (principal); Z68.1 Body mass index [BMI] 19.9 or less, adult; F17.210 Nicotine dependence, cigarettes, uncomplicated; D50.9 Iron deficiency anemia, unspecified; I10 Essential (primary) hypertension; J44.9 Chronic obstructive pulmonary disease, unspecified; R63.0 Anorexia; R63.4 Abnormal weight loss; E78.5 Hyperlipidemia, unspecified; Z90.81 Acquired absence of spleen; Z90.49 Acquired absence of other specified parts of digestive tract; Z85.01 Personal history of malignant neoplasm of esophagus; Z88.0 Allergy status to penicillin; Z96.651 Presence of right artificial knee joint; Z88.2 Allergy status to sulfonamides; Z82.49 Family history of ischemic heart disease and other diseases of the circulatory system; Z80.9 Family history of malignant neoplasm, unspecified
CPT/HCPCS: 36415; 36430; 36600; 71046; 71260; 80053; 81001; 82272; 82550; 82553; 82803; 83690; 83735; 83880; 84100; 84484; 85025; 86850; 86900; 86901; 86920; 87015; 87040; 87070; 87077; 87101; 87116; 87186; 87205; 87206; 93005; 93010; 94640; 96365; 99285; J0456; J0696; J1650; J3370; J3490; J7030; J7040; J7060; J7620; P9016

== ENCOUNTER 2018-01-05 15:33 | Emergency (ER) | payer MEDICARE, MEDICAID ==
[2018-01-05] MEDS ORDERED: ASPIRIN 81 MG TABLET, CHEWABLE PO ONE (15:36)
--- NOTE | 2018-01-05 16:16 | ER Document Report ---
ED General - General TRAVEL OUTSIDE OF THE [place] IN LAST 30 DAYS: No <ALEKSEY REYES - Last Filed: 01/05/18 18:53> <HAYDEN LARA - Last Filed: 01/06/18 08:22> - General Chief Complaint: Chest Pain > 30 Stated Complaint: CHEST PAIN Time Seen by Provider: 01/05/18 16:05 Notes: Patient is a 62-year-old male with history of recent lung mass diagnosis, as well as postobstructive pneumonia that presents to the emergency department for chief complaint of possible seizure, and chest pain and shortness of breath. Patient history is mainly provided by the patient's and brother who are at bedside. Prior to ED arrival, the patient apparently had a convulsive period that lasted less than a minute, and the patient does not recall this, he was confused afterwards, but is now back to his baseline mental status according to his family members. He is now complaining of chest pain on the left side of his chest, he rates it as a 5 out of 10, worse with deep inspiration, and admits to having shortness of breath. Denies having any nausea, vomiting or diaphoresis. He does have a left-sided cavitary lesion, and is currently being treated for pneumonia, with a PICC line, he was recently discharged on the from [facility], after a prolonged hospitalization. He has a prior history of esophageal carcinoma, that has been in remission for approximately 5 years, this lung lesion is new. Denies having any calf swelling, or redness. No prior history of seizures. also reports he is recently been having hallucinations, she states that he often has mild hallucinations from taking Ambien which she takes for insomnia, but they have been worse more recently, and she is concerned about that as well. (ALEKSEY REYES) - Related Data Allergies/Adverse Reactions: Penicillins Allergy (Verified 12/19/17 17:40) Sulfa (Sulfonamide Antibiotics) Allergy (Verified 12/19/17 17:40) Past Medical History - Social History Smoking Status: Current Every Day Smoker Frequency of alcohol use: None Drug Abuse: None Lives with: Family Family History: CAD, CVA, Hypertension, Malignancy, Other - Past Medical History Cardiac Medical History: Reports: Hx Hypertension - Was on medication for his blood pressure but has not taken for a month Denies: Hx Coronary Artery Disease, Hx DVT Pulmonary Medical History: Reports: Hx COPD, Hx Pneumonia, Hx Intubation Endocrine Medical History: Denies: Hx Diabetes Mellitus Type 1, Hx Diabetes Mellitus Type 2 Renal/ Medical History: Denies: Hx Peritoneal Dialysis GI Medical History: Reports: Hx Hiatal Hernia Psychiatric Medical History: Reports: Hx Depression Past Surgical History: Reports: Hx Abdominal Surgery - hernia, spleen, Hx Appendectomy, Hx Cholecystectomy, Hx Orthopedic Surgery - R knee replaced. L knee repair. <ALEKSEY REYES - Last Filed: 01/05/18 18:53> <HAYDEN LARA - Last Filed: 01/06/18 08:22> Other: Lung lesion (ALEKSEY REYES) Review of Systems - Review of Systems Constitutional: Weakness. denies: Chills, Diaphoresis, Fever EENT: denies: Eye pain, Nose congestion, Nose discharge Cardiovascular: Chest pain, Dyspnea, Syncope. denies: Palpitations Respiratory: Hurts to breathe, Short of breath. denies: Cough, Wheezing Gastrointestinal: denies: Abdominal pain, Diarrhea, Nausea, Vomiting Genitourinary: denies: Dysuria, Hematuria Male Genitourinary: No symptoms reported Musculoskeletal: denies: Back pain, Muscle pain, Leg swelling Skin: No symptoms reported. denies: Rash Hematologic/Lymphatic: No symptoms reported. denies: Blood clots Neurological/Psychological: Confusion, Hallucinations, Weakness, Seizure - Possible seizure-like activity. denies: Numbness, Tingling <ALEKSEY REYES - Last Filed: 01/05/18 18:53> Physical Exam - General General appearance: Appears well, Alert In distress: None - HEENT Head: Normocephalic, Atraumatic Eyes: Normal Extraocular movements intact: Yes Pupils: PERRL Pharynx: Normal Neck: Normal. No: Kernig's, Lymphadenopathy - Respiratory Respiratory status: No respiratory distress Chest status: Nontender Breath sounds: Decreased air movement - On the right, clear to auscultation on the left. No: Rales, Rhonchi, Wheezing - Cardiovascular Rhythm: Regular Heart sounds: Normal auscultation Murmur: No Normal capillary refill: Yes - Abdominal Inspection: Normal Distension: No distension Bowel sounds: Normal Tenderness: Nontender. No: Guarding, Rebound Organomegaly: No organomegaly - Extremities General upper extremity: Normal inspection, Nontender, Normal color, Normal ROM , Normal temperature General lower extremity: Normal inspection, Nontender, Normal color, Normal ROM , Normal temperature, Normal weight bearing. No: Avinash's sign - Neurological Neuro grossly intact: Yes Cognition: Normal Orientation: AAOx4 Noti Coma Scale Eye Opening: Spontaneous Fco Coma Scale Verbal: Oriented Fco Coma Scale Motor: Obeys Commands Cfo Coma Scale Total: 15 Speech: Normal Motor strength normal: LUE, RUE, LLE, RLE Sensory: Normal - Psychological Associated symptoms: Normal mood, Flat affect - Skin Skin Temperature: Warm Skin Moisture: Dry Skin Color: Normal <ALEKSEY REYES - Last Filed: 01/05/18 18:53> <HAYDEN LARA - Last Filed: 01/06/18 08:22> - Vital signs Vitals: Temp Pulse Ox 98.5 F 98 01/05/18 15:37 01/05/18 15:37 Notes: Reviewed (ALEKSEY REYES) - Skin Notes: Minor abrasions to the left knee and elbow, no active bleeding or evidence of infection. (ALEKSEY REYES) Course - Laboratory Result Diagrams: 01/05/18 15:05 01/05/18 15:05 <ALEKSEY REYES - Last Filed: 01/05/18 18:53> - Laboratory Result Diagrams: 01/05/18 15:05 01/05/18 21:24 - Diagnostic Test Radiology reviewed: Image reviewed, Reports reviewed - EKG Interpretation by Me EKG shows normal: Sinus rhythm Rate: Normal Rhythm: NSR - Repeat EKG obtained and shows this patient to still be in normal sinus he does have a mildly prolonged QTc which was present previously. <HAYDEN LARA - Last Filed: 01/06/18 08:22> - Re-evaluation Re-evalutation: 01/05/18 Patient seen and examined, vital signs reviewed, patient is complaining of pleuritic chest pain, and shortness of breath, diminished lung sounds on the right compared to the left. Cardiac workup, as well as CT angiogram of the chest, and CT of the head for possible new onset seizure were obtained, and pending. Patient's blood work was reviewed, and demonstrated mildly elevated creatinine from baseline, patient given IV fluids, he was given aspirin as well, anemia at baseline, blood work results discussed with the patient, still pending CTA of the chest, and CT of the head, will sign out to my colleague Dr. Lara. (ERICALEKSEY Eh) 01/05/18 21:02 CTA was negative for PE. Initial and delta troponin within normal limits. Patient is with an AK I but we will repeat BMP after rehydration. I did speak to the hospitalist regarding admission and at this time we both feel that the patient would not benefit by coming into the hospital since he is receiving home health, and IV antibiotics through his PICC. Patient's labs are much improved when compared to previous visits. We did review his medications which show multiple meds that could cause the patient to fall, be confused On reevaluation patient states that besides his chronic back pain he is feeling well. We did discuss observation overnight and consult with psychiatry to review his medications that could be causing him to have tactile hallucinations. Patient is alert and oriented 4. He moves all extremities without difficulty. I did advise him that he should not drive. He does have upcoming appointments with infectious disease, his PCP. After reviewing his labs they all appear to be greatly improved except for his renal function which after fluids is now at his baseline. I had a long discussion with his and himself regarding that these symptoms could be due to the current medications that he is on which include Flexeril, tramadol, Effexor, Remeron, ertepenem and multiple others. I also inquired about the patient's blood pressure and blood pressure medications. Current blood pressure is 154/100 and the reports that that is better than his usual blood pressure. ertepenum does have the side effect of seizures. Patient has had no seizure like activity during his6 hour ED course. Despite mutiple inquiries the story remains unclear . states patient became rigid and was in chair, EMS reports patient on floor without seizure like activity. Patient had no incontinence, tongue biting. I did not stop the abx because reports that lung lesions had multiple things growing in it after biopsy at [facility]. urged to call ID and make them aware of situation as well as pcp so that there can be a thorough medication review. I do not want to stop any of these [facility] medications abruptly. 01/05/18 22:40 01/05/18 22:43 01/06/18 08:14 (HAYDEN LARA) - Vital Signs Vital signs: Temp Pulse Resp BP Pulse Ox 98.3 F 15 144/94 H 96 01/06/18 00:00 01/06/18 00:01 01/06/18 00:01 01/06/18 00:01 - Laboratory Laboratory results interpreted by me: 01/05/18 01/05/18 01/05/18 15:05 15:05 21:24 RBC 2.83 L Hgb 8.6 L Hct 25.3 L RDW 16.8 H Plt Count 547 H Basophils % 2.3 H Creatinine 1.84 H 1.63 H Est GFR ( Amer) 45 L 52 L Est GFR (Non-Af Amer) 37 L 43 L Glucose 67 L 66 L Calcium 8.3 L 8.0 L ALT 14 L Alkaline Phosphatase 155 H Albumin 3.2 L - EKG Interpretation by Me Additional EKG results interpreted by me: 01/05/18 16:52 EKG demonstrates sinus rhythm with a ventricular rate of 85 bpm, left axis deviation, prolonged QTC at 505 ms, no acute ST changes noted, this compared with prior EKG from 12/19/2017, which at that time demonstrated sinus tachycardia , no significant change otherwise. (ALEKSEY REYES) Discharge <ALEKSEY REYES - Last Filed: 01/05/18 18:53> <HAYDEN LARA - Last Filed: 01/06/18 08:22> - Discharge Clinical Impression: Cavitating mass of lung, Seizure-like activity, Pleuritic chest pain, Renal insufficiency, Multifocal pneumonia Hypertension Qualifiers: Hypertension type: unspecified Qualified Code(s): I10 - Essential (primary) hypertension Altered mental status, unspecified Qualifiers: Altered mental status type: unspecified Qualified Code(s): R41.82 - Altered mental status, unspecified Condition: Fair Disposition: HOME, SELF-CARE Instructions: Kidney Injury ([facility]), New Seizure ([facility]), Pneumonia ([facility]) Additional Instructions: Do not drive until evaluated by her primary care physician. I believe a lot of your symptoms you are experiencing are due to medications. I have offered you will observation with evaluation of current medications but you have declined. Please return to the emergency department with any concerns. Ertapenem the antibiotic that you are receiving does have a side effect of confusion and seizures. Prescriptions: Walker [Folding Walker] 1 each [facility] ASDIR PRN #1 each PRN Reason: Referrals: MARGUERITE SMITH MD [Primary Care Provider] - Follow up in 3-5 days
[2018-01-05 16:25] LABS: ALANINE AMINOTRANSFERASE 14 U/L (21-72); ALBUMIN 3.2 g/dL (3.5-5.0); ALKALINE PHOSPHATASE 155 U/L (38-126); ANION GAP 12 (5-19); ASPARTATE AMINO TRANSFERASE 33 U/L (17-59); BILIRUBIN,DIRECT 0.3 mg/dL (0.0-0.4); BILIRUBIN,TOTAL 0.3 mg/dL (0.2-1.3); BLOOD UREA NITROGEN 14 mg/dL (7-20); CALCIUM 8.3 mg/dL (8.4-10.2); CARBON DIOXIDE 24 mmol/L (22-30); CHLORIDE 104 mmol/L (98-107); CREATINE KINASE 58 U/L (55-170); GLUCOSE 67 mg/dL (75-110); POTASSIUM 4.5 mmol/L (3.6-5.0); SODIUM 139.9 mmol/L (137-145); TOTAL PROTEIN 7.4 g/dL (6.3-8.2)
--- NOTE | 2018-01-05 16:29 | RADIOLOGY REPORT (SQ) ---
EXAM DESCRIPTION: CHEST SINGLE VIEW COMPLETED DATE/TIME: 01/05/2018 4:16 pm REASON FOR STUDY: bed 13 cp COMPARISON: 12/19/2017 EXAM PARAMETERS: NUMBER OF VIEWS: One view. TECHNIQUE: Single frontal radiographic view of the chest acquired. RADIATION DOSE: NA LIMITATIONS: None. FINDINGS: LUNGS AND PLEURA: Large cavitary mass is once again seen in the right upper hemithorax. N o air-fluid level is seen at this time. Chronic interstitial changes are present in the lung bases. MEDIASTINUM AND HILAR STRUCTURES: No masses. Contour normal. HEART AND VASCULAR STRUCTURES: Heart normal in size. Normal vasculature. BONES: No acute findings. HARDWARE: None in the chest. OTHER: No other significant finding. IMPRESSION: There is no longer a large air-fluid level in the cavitary mass in the right upper lobe. Chronic interstitial changes are present. TECHNICAL DOCUMENTATION: JOB ID: [id number] [employer]- All Rights Reserved Reading location - IP/workstation name: [email or web address]
[2018-01-05 16:34] LABS: CREATINE KINASE MB 0.79 ng/mL (<4.55); TROPONIN I < 0.012 ng/mL
[2018-01-05 16:42] LABS: ABSOLUTE BASOPHILS # (AUTO) 0.2 10^3/uL (0.0-0.2); ABSOLUTE EOSINOPHILS # (AUTO) 0.2 10^3/uL (0.0-0.6); ABSOLUTE LYMPHOCYTES (AUTO) 1.7 10^3/uL (0.5-4.7); ABSOLUTE MONOCYTES (AUTO) 0.7 10^3/uL (0.1-1.4); BASOPHILS % (AUTO) 2.3 % (0-2); EOSINOPHILS % (AUTO) 2.4 % (0-6); HEMATOCRIT 25.3 % (37.9-51.0); HEMOGLOBIN 8.6 g/dL (13.5-17.0); MEAN CORPUSCULAR HEMOGLOBIN 30.2 pg (27.0-33.4); MEAN CORPUSCULAR HGB CONC 33.9 g/dL (32.0-36.0); MEAN CORPUSCULAR VOLUME 89 fl (80-97); MONOCYTES % (AUTO) 7.6 % (3-13); PLATELET COUNT 547 10^3/uL (150-450); RED BLOOD COUNT 2.83 10^6/uL (4.35-5.55); RED CELL DISTRIBUTION WIDTH 16.8 % (11.5-14.0); SEGMENTED NEUTROPHILS % (AUTO) 68.7 % (42-78); TOTAL CELLS COUNTED % (AUTO) 100 %; WHITE BLOOD COUNT 8.7 10^3/uL (4.0-10.5)
[2018-01-05] MEDS ORDERED: NORMAL SALINE 1000 ML 1,000 ML IV ONE (17:27)
--- NOTE | 2018-01-05 19:03 | RADIOLOGY REPORT (SQ) ---
EXAM DESCRIPTION: CT HEAD WITHOUT COMPLETED DATE/TIME: 01/05/2018 6:47 pm REASON FOR STUDY: possible seizure, hx ca, hallucinations COMPARISON: None. TECHNIQUE: Axial images acquired through the brain without intravenous contrast. Images reviewed wi th bone, brain and subdural windows. Images stored on PACS. All CT scanners at this facility use dose modulation, iterative reconstruction, and/or weight based d osing when appropriate to reduce radiation dose to as low as reasonably achievable (ALARA). [facility]: Dose Right [facility]: CareDose [facility]: Dose Right [facility]: Teradose 4D [facility]: Smart bigtincan RADIATION DOSE: CT Rad equipment meets quality standard of care and radiation dose reduction techniq ues were employed. CTDIvol: 53.2 mGy. DLP: 964 mGy-cm.mGy. LIMITATIONS: None. FINDINGS: VENTRICLES: Age-appropriate. CEREBRUM: No masses. No hemorrhage. No midline shift. Areas of low density in the white matter mos t likely due to chronic micro-vascular ischemic change. No evidence for acute infarction. CEREBELLUM: No masses. No hemorrhage. No alteration of density. No evidence for acute infarction. EXTRAAXIAL SPACES: Age-related involutional change. No fluid collections. No masses. ORBITS AND GLOBE: No intra- or extraconal masses. Normal contour of globe without masses. CALVARIUM: No fracture. PARANASAL SINUSES: No fluid or mucosal thickening. SOFT TISSUES: No mass or hematoma. OTHER: No other significant finding. IMPRESSION: No intracranial hemorrhage. CHRONIC CHANGES OF ATROPHY AND MICROVASCULAR ISCHEMIA. EVIDENCE OF ACUTE STROKE: NO. TECHNICAL DOCUMENTATION: JOB ID: [id number] [place]-72 Quality ID # [id number]: Final reports with documentation of one or more dose reduction techniques (e.g., Au tomated exposure control, adjustment of the mA and/or kV according to patient size, use of iterative reconstruction technique) 2010 [employer]- All Rights Reserved Reading location - IP/workstation name: [email or web address]
--- NOTE | 2018-01-05 19:07 | RADIOLOGY REPORT (SQ) ---
EXAM DESCRIPTION: CTA CHEST COMPLETED DATE/TIME: 01/05/2018 6:47 pm REASON FOR STUDY: chest pain, near syncope, hx of cancer COMPARISON: 12/19/2017 chest x-ray 01/05/2018 TECHNIQUE: CT scan of the chest performed using helical scanning technique with dynamic intravenous contrast injection. Images reviewed with lung, soft tissue and bone windows. Reconstructed coronal and sagittal MPR images reviewed. Additional 3 dimensional post-processing performed to develop Maximal Intensity Projection images (TN P). All images stored on PACS. All CT scanners at this facility use dose modulation, iterative reconstruction, and/or weight based d osing when appropriate to reduce radiation dose to as low as reasonably achievable (ALARA). [facility]: Dose Right [facility]: CareDose [facility]: Dose Right [facility]: Teradose 4D [facility]: [employer] CONTRAST TYPE AND DOSE: contrast/concentration: Isovue 300.00 mg/ml; Total Contrast Delivered: 68.0 ml; Total Saline Delivered: 90.0 ml Contrast bolus optimized for the pulmonary arteries. Not diagnostic for the aorta. RENAL FUNCTION: BUN 14 creatinine 1.8 RADIATION DOSE: CT Rad equipment meets quality standard of care and radiation dose reduction techniq ues were employed. CTDIvol: 19.8 - 29.8 mGy. DLP: 1167 mGy-cm. . LIMITATIONS: None. FINDINGS: LUNGS AND PLEURA: Large cavitary right upper lobe mass. Extensive patchy opacification in the right middle lobe and in the lower lobes. Confluent opacification posterolaterally on the right . AORTA AND GREAT VESSELS: No aneurysm. Contrast bolus not optimized for the aorta. HEART: No pericardial effusion. Moderate to marked coronary artery calcifications. PULMONARY ARTERIES: No emboli visualized in the main pulmonary arteries or the segmental branches. HILAR AND MEDIASTINAL STRUCTURES: Possible gastric pull-through. Dilated thick-walled structure in t he mediastinum containing heterogeneous material. HARDWARE: None in the chest. UPPER ABDOMEN: No significant findings. Limited exam. THYROID AND OTHER SOFT TISSUES: No masses. No adenopathy. BONES: No osseous lesions are present. 3D MIPS: Confirm above findings. OTHER: No other significant finding. IMPRESSION: 1. No evidence of pulmonary emboli. 2. Large cavitary right upper lobe lung mass. There is no air-fluid level at this time. 3. Possible multicentric pneumonia. 4. There appears to been a gastric pull-through procedure. COMMENT: Quality ID # [id number]: Final reports with documentation of one or more dose reduction techniques (e.g., Automated exposure control, adjustment of the mA and/or kV according to patient size, use of iterative reconstruction technique) TECHNICAL DOCUMENTATION: JOB ID: [id number] [employer]- All Rights Reserved Reading location - IP/workstation name: [email or web address]
[2018-01-05] MEDS ORDERED: RINGERS SOLUTION,LACTATED 1,000 ML IV ONE (19:20)
--- NOTE | 2018-01-05 19:22 | EKG REPORT ---
SEVERITY:- ABNORMAL ECG - SINUS RHYTHM PROLONGED QT INTERVAL : Confirmed by: Brian Dozier MD 05-Jan-2018 19:21:18
[2018-01-05 20:09] LABS: APPEARANCE,URINE CLEAR; BILIRUBIN,URINE NEGATIVE (NEGATIVE); COLOR,URINE COLORLESS; GLUCOSE, URINE NEGATIVE (NEGATIVE); KETONES,URINE NEGATIVE (NEGATIVE); LEUKOCYTE ESTERASE,URINE NEGATIVE (NEGATIVE); NITRITE,URINE NEGATIVE (NEGATIVE); PROTEIN,URINE NEGATIVE (NEGATIVE); URINE SPECIFIC GRAVITY 1.005; UROBILINOGEN,URINE NEGATIVE mg/dL (<2.0)
[2018-01-05] MEDS ORDERED: ERTAPENEM SODIUM INJ 1 GM VIAL IV ONE (20:21)
[2018-01-05 20:53] LABS: URINE AMPHETAMINES SCREEN NEGATIVE; URINE BARBITURATES SCREEN NEGATIVE; URINE BENZODIAZEPINES SCREEN NEGATIVE; URINE COCAINE SCREEN NEGATIVE; URINE MARIJUANA (THC) SCREEN NEGATIVE; URINE METHADONE SCREEN NEGATIVE; URINE PHENCYCLIDINE SCREEN NEGATIVE
[2018-01-05 21:49] LABS: ANION GAP 7 (5-19); BLOOD UREA NITROGEN 13 mg/dL (7-20); CARBON DIOXIDE 26 mmol/L (22-30); CHLORIDE 107 mmol/L (98-107); GLUCOSE 66 mg/dL (75-110); POTASSIUM 4.6 mmol/L (3.6-5.0); SODIUM 139.9 mmol/L (137-145)
[2018-01-05] MEDS ORDERED: NORMAL SALINE 500 ML IV ONE (22:14)
[2018-01-05] MEDS ORDERED: DEXTROSE 50%-WATER 25 GM/50 ML DISP.SYRIN IV ONE (22:15)
[2018-01-06] MEDS ORDERED: NORMAL SALINE 10 ML SDV (AFTER EACH USE) IV PRN
[2018-01-06 00:40] VITALS: BP 144/94
--- NOTE | 2018-01-06 07:42 | EKG REPORT ---
SEVERITY:- ABNORMAL ECG - SINUS RHYTHM MULTIPLE ATRIAL PREMATURE COMPLEXES BORDERLINE PROLONGED QT INTERVAL : Confirmed by: Brian Dozier MD 06-Jan-2018 07:42:20
[2018-01-06] MEDS ORDERED: NORMAL SALINE 10 ML SDV (SCHEDULED) IV SCH (10:00)
== END 2018-01-06 00:42 | disposition home or self-care (01) ==
LOC: ER 15:33
DX: R07.81 Pleurodynia (principal); R41.82 Altered mental status, unspecified; R07.9 Chest pain, unspecified; I10 Essential (primary) hypertension; R91.8 Other nonspecific abnormal finding of lung field; N28.9 Disorder of kidney and ureter, unspecified; J18.8 Other pneumonia, unspecified organism; F17.200 Nicotine dependence, unspecified, uncomplicated; Z90.49 Acquired absence of other specified parts of digestive tract; Z96.651 Presence of right artificial knee joint; Z88.0 Allergy status to penicillin; Z88.2 Allergy status to sulfonamides
CPT/HCPCS: 93005; 99285; 96361; 96375; 96365; 36415; 82553; 82550; 85025; 80048; 80053; 81001; 84484; 80307; 71045; 70450; 71275; 93010; J3490 ×2; J1335; J7030; J7040; J7120; J1642

== ENCOUNTER → 2018-02-28 | Outpatient (CLI) | payer MEDICARE, MEDICAID ==
--- NOTE | 2018-02-28 12:39 | RADIOLOGY REPORT (SQ) ---
EXAM DESCRIPTION: CT CHEST WITH COMPLETED DATE/TIME: 02/28/2018 11:02 am REASON FOR STUDY: ABSCESS OF LUNG WITH PNEUMONIA (J85.1) J85.1 ABSCESS OF LUNG WITH PNEUMONIA COMPARISON: CTA chest 01/05/2018, CT chest 12/19/2017, 07/14/2017 TECHNIQUE: CT scan of the chest performed using helical scanning technique with dynamic intravenous contrast injection. Images reviewed with lung, soft tissue and bone windows. Reconstructed coronal and sagittal MPR and MIP images reviewed. All images stored on PACS. All CT scanners at this facility use dose modulation, iterative reconstruction, and/or weight based d osing when appropriate to reduce radiation dose to as low as reasonably achievable (ALARA). [facility]: Dose Right [facility]: CareDose [facility]: Dose Right [facility]: Teradose 4D [facility]: [employer] CONTRAST TYPE AND DOSE: contrast/concentration: Isovue 350.00 mg/ml; Total Contrast Delivered: 79.0 ml; Total Saline Delivered: 52.0 ml RENAL FUNCTION: Creatinine 1.3 RADIATION DOSE: CT Rad equipment meets quality standard of care and radiation dose reduction techniq ues were employed. CTDIvol: 5.2 mGy. DLP: 208 mGy-cm. . LIMITATIONS: None. FINDINGS: LUNGS AND PLEURA: In the right upper lobe, there are surgical clips at the expected locati on of the apical segmental bronchus. Apicoposterior segment of the right upper lobe is replaced by a thin walled cavity which communicates with the apicoposterior segmental bronchus. No air-fluid leve l in the cavity. Mild increased interstitial markings around its periphery from postinflammatory poornima nge. No other cavitary lesions in the lungs. Minimal bibasilar atelectasis. No acute infiltrates pleural effusions or pneumothorax. HILAR AND MEDIASTINAL STRUCTURES: Post gastric pull-through and distal esophagectomy. Proximal to th e esophagogastric anastomosis there is an air-fluid level in the upper half of the esophagus. Esopha geal stricture may be present. Consider esophagram for followup. HEART AND VASCULAR STRUCTURES: No aneurysm or dissection. No central pulmonary emboli. No pericardi al effusion. HARDWARE: None in the chest. UPPER ABDOMEN: Clips post cholecystectomy THYROID AND OTHER SOFT TISSUES: No masses. No adenopathy. BONES: No significant finding. OTHER: No other significant finding. IMPRESSION: Persistent thin walled cavity in the ago posterior segment of the right upper lobe. Air-fluid level in the esophagus proximal to the esophagogastric anastomosis. Stricture may be prese nt. Consider follow-up esophagram TECHNICAL DOCUMENTATION: JOB ID: [id number] Quality ID # [id number]: Final reports with documentation of one or more dose reduction techniques (e.g., Au tomated exposure control, adjustment of the mA and/or kV according to patient size, use of iterative reconstruction technique) 2010 [employer]- All Rights Reserved Reading location - IP/workstation name: [email or web address]
== END ==
LOC: RAD 11:15
PROVIDERS: ATTEND Internal Medicine
DX: J85.1 Abscess of lung with pneumonia (principal)
CPT/HCPCS: 71260; 82565

== ENCOUNTER → 2018-10-06 | Outpatient (CLI) | payer MEDICARE, MEDICAID ==
--- NOTE | 2018-10-06 16:22 | RADIOLOGY REPORT (SQ) ---
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 TECHNIQUE: Sagittal and Axial imaging includes T1, T2, STIR and gradient echo sequences. LIMITATIONS: None. FINDINGS: ALIGNMENT: Normal. VERTEBRAE: Intact. BONE MARROW: Reactive changes are seen at C6-7. DISCS: Generally decreased signal intensity. Multilevel disc narrowing, most prominent at C6-7. HARDWARE: None in the spine. CORD AND BASE OF BRAIN: Normal in size and signal intensity. SOFT TISSUES: No soft tissue masses. C1-C2: No significant spinal stenosis. C2-C3: No significant spinal stenosis or exit foraminal stenosis. C3-C4: Prominent asymmetrical disc/ osteophyte complex, more prominent on the right. This slightly d eforms the spinal cord. Mild right foraminal stenosis. C4-C5: Midline disc/ osteophyte complex contacts the spinal cord but does not significantly deform th e cord. No foraminal stenosis. C5-C6: Shallow disc/ osteophyte complex narrows the anterior CSF spaces does not deform the spinal co rd. No foraminal stenosis. C6-C7: Shallow disc/ osteophyte complex. No central canal or foraminal stenosis. C7-T1: No significant spinal stenosis or exit foraminal stenosis. UPPER THORACIC: Incompletely imaged. No significant spinal stenosis or exit foraminal stenosis. OTHER: No other significant finding. IMPRESSION: There are generally mild disc changes at several levels. The most significant finding i s at C3-4. TECHNICAL DOCUMENTATION: JOB ID: [id number] [employer]- All Rights Reserved Reading location - IP/workstation name: [email or web address]
== END ==
LOC: RAD 14:16
PROVIDERS: ATTEND Psychiatry & Neurology Neurology
DX: G95.9 Disease of spinal cord, unspecified (principal)
CPT/HCPCS: 72141; 82565